=== PATIENT | female | born 1955 | race Caucasian/White ===

== ENCOUNTER 2023-07-02 07:41 | Observation (INO) | payer OTHER ==
[2023-06-27 14:47] LABS: Absolute Eosinophils 0.2 K/uL (0-0.5); Absolute Lymphocytes (CBC) 1.1 K/uL (0.7-4.9); Absolute Monocytes 0.6 K/uL (0.1-1.3); Absolute Neutrophil 5.4 K/uL (1.8-8.0); Basophils % 0.7 % (0-1.3); Eosinophils % 2.2 % (0-4.4); Hemoglobin 8.8 g/dL (12.0-15.0); Lymphocytes % 15.5 % (15.3-44.8); MCH 33.2 pg (27.0-35.0); MCHC 35.2 g/dL (32.0-36.0); MCV 94.4 fL (80-100); MPV 8.3 fL (7.6-11.3); Monocytes % 7.9 % (3.3-12.3); Neutrophils % 73.7 % (41.7-73.7); Platelets 287 thou/uL (152-406); RBC Red Blood Cell Count 2.65 M/uL (3.86-4.86); Red Cell Distribution Width 13.3 % (12.1-15.2)
[2023-06-27 15:00] LABS: Anion Gap 6.9 mEq/L (5.0-15.0); Potassium 3.9 mEq/L (3.5-5.1)
[2023-07-02] MEDS: Ringers Lactate 1,000 ML IV ONE (08:00)
[2023-07-02] MEDS: FENTANYL CITR 100 MCG/2 ML ONE (08:21)
[2023-07-02] MEDS: EPINEPHRINE 1 MG/ML VIAL ONE (08:21)
[2023-07-02] MEDS: BUPIVACAINE 0.25% PF 30 ML VIAL ONE (08:22)
[2023-07-02] MEDS: MIDAZOLAM HCL 2 MG/2 ML INJ ONE (08:22)
[2023-07-02] MEDS: dexAMETHasone 4 MG/ML VIAL ONE (08:22)
[2023-07-02] MEDS: LIDOCAINE 1% MPF 5 ML VIAL ONE (08:31)
[2023-07-02] MEDS: CEFAZOLIN SODIUM 1 GM/VIAL ONE (08:53)
[2023-07-02] MEDS ORDERED: propofoL 200 MG/20 ML VIAL IV ONE (09:30)
[2023-07-02] MEDS ORDERED: KETOROLAC 30 MG/ML INJ ONE (09:30)
[2023-07-02] MEDS ORDERED: ONDANSETRON 4 MG/2 ML VIAL ONE (09:30)
[2023-07-02] MEDS ORDERED: LIDOCAINE 1% MPF 5 ML VIAL ONE (09:30)
[2023-07-02] MEDS ORDERED: KETAMINE HCL IN 0.9 % NACL 50 MG/5 ML SYRINGE IV ONE (10:42)
[2023-07-02] MEDS ORDERED: FENTANYL CITR 100 MCG/2 ML ONE (10:47)
[2023-07-02] MEDS ORDERED: DOCUSATE NA 100 MG CAP PO PRN (11:45)
--- NOTE | 2023-07-02 12:23 | RAD REPORT ---
EXAM DESCRIPTION: RAD - Knee Left 2 View - 07/02/2023 12:08 pm CLINICAL HISTORY: Tibial fracture FINDINGS: Plates and screws affix a tibial fracture. Surgery performed by Dr. Rose A 24 fluoroscopic intraoperative spot images obtained. Fluoroscopy time 1.2 minutes
--- NOTE | 2023-07-02 12:27 | OP ---
Date of Procedure: 07/02/2023 Surgeon: Corey Rose MD Preoperative Diagnosis: Left type 6 tibial plateau fracture. Postoperative Diagnosis: Left type 6 tibial plateau fracture. Procedure: Left type 6 tibial plateau open reduction and internal fixation with bicondylar fixation. Estimated Blood Loss: 30 cc. Complications: There were no complications. Indications For Operation: Ms. Perez is a 67-year-old female who unfortunately fell injuring her left lower extremity. She was seen and examined in the emergency department where she was ruled out for other injuries; however, x-rays and CT scan demonstrated a type 6 relatively nondisplaced tibial plat eau fracture. She did have some depression on the lateral aspect which can be seen both on x-ray as well as CT. However, it appeared to be relatively well reduced, otherwise. Risks, benefits, and alt ernatives of different methods of treating this were discussed with the patient. She states she unde rstands things as presented and wants to proceed with open reduction and internal fixation, possible bone grafting or other indicated procedures. Description Of Procedure: The patient was taken to the operating room, placed in supine position. G eneral anesthesia was easily obtained by Anesthesia staff. She had previously had a block in the [facility] area and after this, a well-padded tourniquet was placed on superior left thigh. Left lower ext remity was then prepped and draped in usual sterile fashion for the procedure. She was then position ed on a triangle and C-arm was brought in to ensure good AP and lateral views as well as the possibil ity of using fluoroscopic mobile pictures for assessment. After this, a standard anterior incision w ith a lateral S was performed just lateral to the tibial crest and coming to near the region of the t ibial tubercle and then curving along Gerdy's tubercle with a superior turn most proximally. This wa s taken down very carefully through skin only. She does have some adipose tissue in this. However, the tibial crest was palpated and the tibialis anterior was then incised leaving only a small amount of fascia on the tibial crest. This was brought up to Gerdy's tubercle and this was cleared for appl ication of the plate. Manual reduction techniques were used including traction, extension, which dem onstrates a very good reduction. This actually even includes the posterior depressed portion. Decis ion was made not to make a cortical window for the depressed portion as this was seen primarily on th e lateral and it did appear to improve with better reduction of the tibial shaft and the remainder of the plate was then provisionally fixed to the bone using 2 K-wires for its position. These appeared to be good and as it is held in position, a distal nonlocking screw was placed to compress the plate . This was followed by placement of 1 lock screw superiorly. It was again assessed on AP and latera l views and appears to be in appropriate position. After this, the remainder of the screws were then placed and the fracture reduction was maintained. The K-wires were removed. The wound was irrigate d. The tibialis anterior and fascia were tacked down gently to over the plate. No attempt was made to close that tightly and a medium Hemovac drain was placed. The skin was then closed with 2-0 Vicry l sutures followed by randy and Aquacel dressing. The patient was then awakened and taken to the r ecovery room in good condition. There were no complications. /MART Voice ID: [id number] Report ID: [id number]
[2023-07-02] MEDS: HYDROCODONE/APAP 5/325 MG TAB ONE (12:42)
[2023-07-02] MEDS: HYDROMORPHONE HCL 1 MG/ML INJ ONE (13:00)
--- NOTE | 2023-07-02 14:22 | P.BOP ---
Preoperative diagnosis: left bicondylar tibial plateau fracture Postoperative diagnosis: same Primary procedure: ORIF bicondylar tibial plateau fracture Estimated blood loss: 30 ccs Anesthesia: General Transferred to: Recovery Room Condition: Good
[2023-07-02 14:57] VITALS: BMI 18.8
[2023-07-02] MEDS: CLINDAMYCIN 900MG/D5W 900 MG/50 ML IVPB IV SCH (16:34)
[2023-07-02] MEDS ORDERED: CLINDAMYCIN 900MG/D5W 900 MG/50 ML IVPB IV SCH (17:00)
[2023-07-02] MEDS: FENTANYL CITR 100 MCG/2 ML IV PRN (22:00)
[2023-07-02 23:47] VITALS: O2SAT 97
[2023-07-03 06:31] LABS: Hematocrit 23.4 % (36.0-45.0); Hemoglobin 7.9 g/dL (12.0-15.0)
[2023-07-03] MEDS: ASPIRIN EC 81 MG TAB PO SCH (08:30)
[2023-07-03] MEDS ORDERED: TRAMADOL HCL 50 MG TAB PO PRN (08:37)
--- NOTE | 2023-07-03 08:44 | P.CNS ---
Date of Consult: 07/02/23 Reason for Consult: Assistance with medical management Requesting Physician: Corey Rose Chief Complaint: Repair of left tibial plateau fracture History of Present Illness: Patient is a 67-year-old female who came to the hospital with a left tibial plateau fracture. Patient had repair performed by Dr. Rose. Patient came into the office for further evaluation. Patient states she had fallen off the bed and landed on her left knee. She was having severe pain so she went to the office to be seen. She was scheduled for the OR as an outpatient. Patient was admitted for further treatment. Patient states that her surgery went well. Patient denies any complaints. Patient did well with physical therapy today. Patient is doing well but she states her biggest issue is pain management. She does still like to take a lot of pain medication and has a lot of allergies. She requests Demerol but is willing to try fentanyl. Patient will be admitted to the hospital for further workup. Allergies codeine [Codeine] Allergy (Severe, Verified 07/02/23 08:25) Severe Vomiting Penicillins Allergy (Intermediate, Verified 07/02/23 08:25) Rash Sulfa (Sulfonamide Antibiotics) [Sulfa(Sulfonamide Antibiotics)] Allergy (Intermediate, Verified 07/02/23 08:25) Rash acetaminophen [From [place]] Allergy (Verified 07/02/23 21:17) Itching hydrocodone [From [place]] Allergy (Verified 07/02/23 21:17) Itching latex Allergy (Verified 07/02/23 08:25) Rash/Burn morphine Allergy (Verified 07/02/23 08:25) Anaphylaxis tramadol Allergy (Verified 07/02/23 21:17) Itching Home Medications: Naproxen Sodium [Aleve] 220 mg PO BIDP PRN 06/27/23 Tramadol HCl [Ultram] 0.5 tab PO BIDP PRN 06/27/23 - Past Medical/Surgical History Diabetic: No -: 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 -: 07/02/23 left knee -: rt foot fx with screw -: left wrist with plate -: both shoulders rotor cuff disloction - Family History Mother Medical History: Heart disease Notes: CHF with COVId Father Notes: prostrate cancer - Social History Smoking Status: Former smoker Alcohol use: No CD- Drugs: No Caffeine use: Yes Place of Residence: Home Review of Systems 10-point ROS is otherwise unremarkable Physical Examination Temp Pulse Resp BP Pulse Ox 98.7 F 94 H 16 136/59 L 97 07/03/23 04:00 07/03/23 04:00 07/03/23 04:00 07/03/23 04:00 07/03/23 04:00 General: Alert, In no apparent distress, Oriented x3 HEENT: Atraumatic, PERRLA, Mucous membr. moist/pink, EOMI, Sclerae nonicteric Neck: Supple, 2+ carotid pulse no bruit, No LAD, Without JVD or thyroid abnormality Respiratory: Clear to auscultation bilaterally, Normal air movement Cardiovascular: Regular rate/rhythm, Normal S1 S2 Gastrointestinal: Normal bowel sounds, No tenderness Musculoskeletal: Contractures (Of the upper extremity and mainly the hands), Tenderness (on movement) Integumentary: No rashes Neurological: Normal speech, Normal tone, Sensation intact, Cranial nerves 3-12 intact, Normal affect, Abnormal gait, Abnormal strength Lymphatics: No axilla or inguinal lymphadenopathy Laboratory Data (last 24 hrs) 07/03/23 05:43 Hgb 7.9 L Hct 23.4 L - Problems (1) Type I or II open fracture of posterior aspect of tibial plateau Current Visit: Yes Status: Acute (2) Keiuzjr-Dvern-Kiblz disease Current Visit: Yes Status: Acute Conclusions/ Impression: Plan: 1. Continue with medication for DVT prophylaxis 2. Physical therapy 3. Home health with physical therapy 4. Pain control 5. GI and DVT prophylaxis Critical Care: No Time Spent Managing Pts care (In Minutes): 45
[2023-07-03 11:09] LABS: Absolute Eosinophils 0.1 K/uL (0-0.5); Absolute Lymphocytes (CBC) 0.8 K/uL (0.7-4.9); Absolute Monocytes 0.7 K/uL (0.1-1.3); Absolute Neutrophil 6.6 K/uL (1.8-8.0); Basophils % 0.6 % (0-1.3); Eosinophils % 1.4 % (0-4.4); Hematocrit 23.8 % (36.0-45.0); Lymphocytes % 9.8 % (15.3-44.8); MCH 31.9 pg (27.0-35.0); MCHC 33.7 g/dL (32.0-36.0); MCV 94.4 fL (80-100); Monocytes % 8.5 % (3.3-12.3); Neutrophils % 79.7 % (41.7-73.7); Platelets 384 thou/uL (152-406); RBC Red Blood Cell Count 2.52 M/uL (3.86-4.86); Red Cell Distribution Width 13.7 % (12.1-15.2)
[2023-07-04 06:55] LABS: Absolute Eosinophils 0.2 K/uL (0-0.5); Absolute Lymphocytes (CBC) 0.9 K/uL (0.7-4.9); Absolute Monocytes 0.7 K/uL (0.1-1.3); Basophils % 0.3 % (0-1.3); Eosinophils % 2.4 % (0-4.4); Hematocrit 23.6 % (36.0-45.0); Lymphocytes % 11.5 % (15.3-44.8); MCH 32.1 pg (27.0-35.0); MCHC 33.9 g/dL (32.0-36.0); MCV 94.5 fL (80-100); MPV 7.3 fL (7.6-11.3); Monocytes % 8.8 % (3.3-12.3); Nucleated Red Blood Cells % 0.1 % (0-0); Platelets 389 thou/uL (152-406); RBC Red Blood Cell Count 2.49 M/uL (3.86-4.86); Red Cell Distribution Width 13.7 % (12.1-15.2)
[2023-07-04 07:02] LABS: Anion Gap 5.8 mEq/L (5.0-15.0); Potassium 3.8 mEq/L (3.5-5.1)
[2023-07-04 12:39] VITALS: BP 118/53; TEMP 98.7
--- NOTE | 2023-07-04 23:54 | P.PN ---
Date of Service: 07/03/23 Subjective Patient is doing somewhat better although she was seen by inpatient rehabilitation for evaluation. Patient was denied because she did not have enough medical complexity. Patient wanted to go by Dr. Rose's office for a brace. she wanted to try to work with therapy to build her strength up a little bit more since she is at home by herself and she does not have any family. Will go ahead and arrange for physical therapy and plan for discharge tomorrow morning. Physical Examination Vitals: Reviewed General: Alert, In no apparent distress, Oriented x3 Respiratory: Clear to auscultation bilaterally, Normal air movement Cardiovascular: Regular rate/rhythm, Normal S1 S2 Gastrointestinal: Normal bowel sounds, No tenderness Musculoskeletal: Contractures (Of the upper extremity and mainly the hands), Tenderness (on movement) Neurological: Normal speech, Normal tone, Sensation intact, Cranial nerves 3-12 intact, Normal affect, Abnormal gait, Abnormal strength - Problems (1) Type I or II open fracture of posterior aspect of tibial plateau Current Visit: Yes Status: Acute (2) Zrpvjta-Uefld-Brift disease Current Visit: Yes Status: Acute Conclusions/ Impression: Plan: Continue with plan of care as mentioned below: 1. Continue with medication for DVT prophylaxis 2. Physical therapy 3. Home health with physical therapy 4. Pain control 5. GI and DVT prophylaxis Critical Care: No Time Spent Managing Pts care (In Minutes): 45
--- NOTE | 2023-07-04 23:58 | P.DS ---
Discharge Date: 07/04/23 Disposition: NH HOME/HOME HEALTH CARE Reason for Admission: Repair of left tibial plateau fracture - Problems (1) Type I or II open fracture of posterior aspect of tibial plateau Status: Acute (2) Gphdyju-Qofyl-Rldhi disease Status: Acute Brief History of Present Illness: Patient is a 67-year-old female who came to the hospital with a left tibial plateau fracture. Patient had repair performed by Dr. Rose. Patient came into the office for further evaluation. Patient states she had fallen off the bed and landed on her left knee. She was having severe pain so she went to the office to be seen. She was scheduled for the OR as an outpatient. Patient was admitted for further treatment. Patient states that her surgery went well. Patient denies any complaints. Patient did well with physical therapy today. Patient is doing well but she states her biggest issue is pain management. She does still like to take a lot of pain medication and has a lot of allergies. She requests Demerol but is willing to try fentanyl. Patient will be admitted to the hospital for further workup. Hospital Course: Patient is stable for discharge at this time. She wants to try to get pain medication although she has multiple allergies but she was unable to tack picker her Demerol. It was going to cost her a 1000 dollars and she was going to try to manage with her tramadol. We will give her Xarelto at discharge for outpatient follow-up. She will need DVT prophylaxis and see Dr. Rose after she picks up her brace she should be stable for discharge home. At this time patient is stable for outpatient follow-up. Vital Signs/Physical Exam: Temp Pulse Resp BP Pulse Ox 98.7 F 95 H 16 118/53 L 91 07/04/23 12:00 07/04/23 12:00 07/04/23 12:00 07/04/23 12:00 07/04/23 12:00 General: Alert, In no apparent distress, Oriented x3 Laboratory Data at Discharge: WBC 7.70 thou/uL (4.3-10.9) 07/04/23 06:15 Hgb 8.0 g/dL (12.0-15.0) L 07/04/23 06:15 Hct 23.6 % (36.0-45.0) L 07/04/23 06:15 Plt Count 389 thou/uL (152-406) 07/04/23 06:15 Sodium 137 mEq/L (136-145) 07/04/23 06:15 Potassium 3.8 mEq/L (3.5-5.1) 07/04/23 06:15 BUN 10 mg/dL (7-18) 07/04/23 06:15 Creatinine 0.47 mg/dL (0.55-1.02) L 07/04/23 06:15 Glucose 107 mg/dL (74-106) H 07/04/23 06:15 Home Medications: Naproxen Sodium [Aleve] 220 mg PO BIDP PRN 06/27/23 Tramadol HCl [Ultram] 0.5 tab PO BIDP PRN 06/27/23 Meperidine HCl 0.5 tab PO Q12HP PRN #10 tab 07/03/23 Apixaban [Eliquis] 2.5 mg PO BID #30 tablet 07/04/23 Meperidine HCl 0.5 tab PO Q12HP PRN #20 tab 07/04/23 New Medications: Apixaban [Eliquis] 2.5 mg PO BID #30 tablet Meperidine HCl 0.5 tab PO Q12HP PRN #10 tab PRN Reason: Pain Scale 8-10 (Severe) Meperidine HCl 0.5 tab PO Q12HP PRN #20 tab PRN Reason: Pain Scale 8-10 (Severe) Physician Discharge Instructions: Home Health arranged with: [facility] P:[phone] F:[phone] -DC IV and DC home -Follow-up with PCP in 1 to 2 weeks -Follow-up with Orthopedics, Dr. Rose, in 1 to 2 weeks -Please call Dr. Santos at [phone] if any questions regarding hospital stay -Please call nursing station at [phone] if any nursing or medication questions -Return to the emergency room if symptoms worsen Diet: Regular Activity: Fall precautions Followup: Corey Rose MD [Primary Care Provider] - 1-2 Weeks Time spent managing pt's care (in minutes): 35
--- NOTE | 2023-07-05 17:58 | EKG ---
Test Date: 2023-06-27 Test Time: 15:15:47 Experimental Welder: DONNA MEASUREMENT RESULTS: Intervals: Rate: 93 DC: 128 QRSD: 74 QT: 344 QTc: 427 [place]: P: 85 DC: 128 QRS: 91 T: 89 INTERPRETIVE STATEMENTS: Normal sinus rhythm Rightward axis Borderline ECG No previous ECG available for comparison Electronically Signed On 07-05-23 17:34:31 CDT by Pedro Styles
== END 2023-07-04 13:07 | disposition home health service (06) ==
LOC: OR 07:41 → 4TH 11:45
PROVIDERS: ADMIT Orthopaedic Surgery; ATTEND Orthopaedic Surgery
PROC: 0QSH04Z Reposition Left Tibia with Internal Fixation Device, Open Approach (ICD-10-PCS; principal; 2023-07-02 09:45)
DX: S82.122A Displaced fracture of lateral condyle of left tibia, initial encounter for closed fracture (principal); G60.0 Hereditary motor and sensory neuropathy; Z88.5 Allergy status to narcotic agent; Z88.0 Allergy status to penicillin; Z88.2 Allergy status to sulfonamides; Z91.040 Latex allergy status
CPT/HCPCS: 27536; 93005; 85025 ×3; 80048 ×2; 36415 ×3; 86900; 86850; 86901; 85018; 85014; 73560; 97139; 97163; 97530 ×8; 97542 ×2; 94010 ×2; G0379; J2704; J1100; J2001 ×2; J2250; J3010 ×12; J0171; J1170; J2405; G0378 ×5; J7120; J0690